=== PATIENT | male | born 1955 | race Two or more races ===

== ENCOUNTER 2020-11-10 14:34 | Emergency (ER) | payer OTHER ==
[~2020-11-10] VITALS: Ht 170.2 cm; Wt 77.1 kg
[2020-11-10] MEDS ORDERED: AMLODIPINE-OLM1 EAC2 (14:57)
[2020-11-10] MEDS ORDERED: ZESTRIL10 M1 (14:57)
[2020-11-10] MEDS ORDERED: ESCITALOPRAM OX10 MG (14:57)
[2020-11-10] MEDS ORDERED: AZOPT10 ML (14:58)
== END 2020-11-11 00:36 | disposition home or self-care (01) ==
LOC: ER 14:34
DX: I82.432 Acute embolism and thrombosis of left popliteal vein (principal); Z03.818 Encounter for observation for suspected exposure to other biological agents ruled out

== ENCOUNTER 2020-11-20 10:22 | Outpatient (CLI) | payer OTHER ==
[~2020-11-20 10:22] MED LIST: AMLODIPINE-OLM1 EAC2; AZOPT10 ML; ESCITALOPRAM OX10 MG; ZESTRIL10 M1
== END 2020-11-20 10:36 ==
LOC: TOM 10:22
DX: K80.80 Other cholelithiasis without obstruction (principal); K57.90 Diverticulosis of intestine, part unspecified, without perforation or abscess without bleeding; I82.402 Acute embolism and thrombosis of unspecified deep veins of left lower extremity

== ENCOUNTER 2021-02-07 10:45 | Outpatient (CLI) | payer OTHER | END 2021-02-07 10:47 | disposition home or self-care (01) | LOC: NUCLEAR 10:45 | PROVIDERS: ATTEND Internal Medicine Hematology & Oncology | DX: I82.403 Acute embolism and thrombosis of unspecified deep veins of lower extremity, bilateral (principal) ==

== ENCOUNTER → 2021-05-21 11:11 | Outpatient (CLI) | payer OTHER | END | disposition home or self-care (01) | LOC: NUCLEAR 11:00 | PROVIDERS: ATTEND Internal Medicine Hematology & Oncology | DX: I87.2 Venous insufficiency (chronic) (peripheral) (principal); I82.402 Acute embolism and thrombosis of unspecified deep veins of left lower extremity ==

== ENCOUNTER 2021-11-08 10:25 | Outpatient (CLI) | payer OTHER | END 2021-11-08 10:28 | disposition home or self-care (01) | LOC: NUCLEAR 10:25 | PROVIDERS: ATTEND Internal Medicine Hematology & Oncology | DX: I82.402 Acute embolism and thrombosis of unspecified deep veins of left lower extremity (principal) ==

== ENCOUNTER 2022-05-22 11:11 | Outpatient (CLI) | payer OTHER | END 2022-05-22 11:12 | disposition home or self-care (01) | LOC: NUCLEAR 11:11 | PROVIDERS: ATTEND Internal Medicine Hematology & Oncology | DX: I87.2 Venous insufficiency (chronic) (peripheral) (principal) ==

== ENCOUNTER 2023-02-09 11:34 | Outpatient (CLI) | payer OTHER | END 2023-02-09 11:39 | disposition home or self-care (01) | LOC: NUCLEAR 11:34 | PROVIDERS: ATTEND Internal Medicine Hematology & Oncology | DX: I87.2 Venous insufficiency (chronic) (peripheral) (principal); Z86.718 Personal history of other venous thrombosis and embolism ==

== ENCOUNTER → 2023-06-04 09:34 | Outpatient (CLI) | payer OTHER | END | disposition home or self-care (01) | LOC: LAB 09:34 | PROVIDERS: ATTEND Surgery | DX: D12.0 Benign neoplasm of cecum (principal); D12.6 Benign neoplasm of colon, unspecified; K92.1 Melena ==

== ENCOUNTER 2023-06-12 07:00 | Day surgery (SDC) | payer OTHER | END 2023-06-12 11:15 | disposition home or self-care (01) | LOC: AMB-ENDOS 07:00 | PROVIDERS: ATTEND Surgery | DX: D12.0 Benign neoplasm of cecum (principal); K57.30 Diverticulosis of large intestine without perforation or abscess without bleeding; K92.1 Melena; Z20.822 Contact with and (suspected) exposure to COVID-19 ==

== ENCOUNTER 2023-07-28 09:24 | Outpatient (CLI) | payer OTHER ==
[2023-07-28 10:34] LABS: PH,URINE 7.5 (5.0-8.0); URINE APPEARANCE Clear; URINE BILIRRUBIN Negative (NEGATIVE); URINE BLOOD Negative; URINE COLOR Yellow; URINE GLUCOSE Negative (NEGATIVE); URINE LEUKOCYTE Negative; URINE NITRATE Negative; URINE PROTEIN Negative (NEGATIVE); URINE UROBILINOGEN 0.2 E.U./dl
[2023-07-28 10:36] LABS: HEMATOCRIT 42.2 % (39.0-48.0); HEMOGLOBIN 14.5 g/dL (13-16.00); MEAN CELL VOLUME 90.4 fL (80.0-100.00); MEAN CORPUSCULAR HEMOGLOBIN 31.1 pg (27.00-32.0); MEAN CORPUSCULAR HGB CONC 34.4 g/dl (32.0-36.0); PLATELET COUNT 232 K/uL (150-450); RED BLOOD COUNT 4.67 M/uL (4.00-6.00); RED CELL DISTRIBUTION WIDTH 13.8 % (11.5-14.5)
[2023-07-28 11:05] LABS: INR 1.01; PARTIAL THROMBOPLASTIN TIME 23.9 SECONDS (22.0-34.0); PROTHROMBIN TIME 10.6 SECONDS (9.0-11.5)
[2023-07-28 11:17] LABS: URINE BACTERIA 0 uL (0.0-1933); URINE RBC 0.7 uL (0.0-20.8); URINE WBC 0.1 uL (0.0-23.2)
[2023-07-28 11:28] LABS: ALBUMIN 3.6 gm/dL (3.4-5.0); CALCIUM 9.2 mg/dL (8.5-10.1); CREATININE SERUM 0.78 mg/dL (0.70-1.30); GFR 99.58; PHOSPHOROUS 2.7 mg/dL (2.5-4.9); POTASSIUM 4.28 mEq/L (3.5-5.1)
== END 2023-07-28 09:28 | disposition home or self-care (01) ==
LOC: LAB 09:24 → NUCLEAR 11:00
PROVIDERS: ATTEND Surgery
DX: D12.6 Benign neoplasm of colon, unspecified (principal); K92.1 Melena; R59.0 Localized enlarged lymph nodes

== ENCOUNTER 2023-07-28 10:41 | Outpatient (CLI) | payer OTHER | END 2023-07-28 10:42 | disposition home or self-care (01) | LOC: NUCLEAR 10:41 | PROVIDERS: ATTEND Internal Medicine Hematology & Oncology | DX: I82.502 Chronic embolism and thrombosis of unspecified deep veins of left lower extremity (principal); I87.2 Venous insufficiency (chronic) (peripheral) ==

== ENCOUNTER 2023-08-05 08:45 | Inpatient (IN) | payer OTHER ==
[~2023-08-05] VITALS: Ht 17.8 cm; Wt 73.5 kg
[2023-08-05] MEDS ORDERED: DAFLONEX-XL 11300 MG (13:23)
[2023-08-05] MEDS ORDERED: CHILDREN'S ASPI81 MG PO (13:23)
[2023-08-05] MEDS ORDERED: PHENAGIL TABLE1 EACH PO (13:24)
[2023-08-11] MEDS ORDERED: FLONASE16 GM (08:41)
[2023-08-11] MEDS ORDERED: ATORVASTATIN CA20 MG (08:41)
[2023-08-11] MEDS ORDERED: AMLODIPINE BESYL5 MG (08:41)
[2023-08-11] MEDS ORDERED: REFRESH OPTIVE10 ML (08:41)
[2023-08-11 11:10] LABS: HEMATOCRIT 41.4 % (39.0-48.0); MEAN CELL VOLUME 93.1 fL (80.0-100.00); MEAN CORPUSCULAR HEMOGLOBIN 31.6 pg (27.00-32.0); MEAN CORPUSCULAR HGB CONC 33.9 g/dl (32.0-36.0); PLATELET COUNT 230 K/uL (150-450); RED BLOOD COUNT 4.45 M/uL (4.00-6.00); RED CELL DISTRIBUTION WIDTH 13.4 % (11.5-14.5)
[2023-08-11 11:32] LABS: ALBUMIN 3.4 gm/dL (3.4-5.0); CALCIUM 9.1 mg/dL (8.5-10.1); CREATININE SERUM 0.74 mg/dL (0.70-1.30); GFR 105.82; MAGNESIUM 2.2 mg/dL (1.8-2.4); PHOSPHOROUS 3.4 mg/dL (2.5-4.9); POTASSIUM 4.7 mEq/L (3.5-5.1)
[2023-08-12 07:16] LABS: HEMATOCRIT 43.5 % (39.0-48.0); HEMOGLOBIN 14.9 g/dL (13-16.00); MEAN CORPUSCULAR HEMOGLOBIN 31.1 pg (27.00-32.0); MEAN CORPUSCULAR HGB CONC 34.2 g/dl (32.0-36.0); PLATELET COUNT 203 K/uL (150-450); RED BLOOD COUNT 4.79 M/uL (4.00-6.00); RED CELL DISTRIBUTION WIDTH 13.5 % (11.5-14.5)
[2023-08-12 07:44] LABS: ALBUMIN 3.2 gm/dL (3.4-5.0); CALCIUM 9.1 mg/dL (8.5-10.1); CREATININE SERUM 0.82 mg/dL (0.70-1.30); MAGNESIUM 2.5 mg/dL (1.8-2.4); POTASSIUM 4.4 mEq/L (3.5-5.1)
[2023-08-14] MEDS ORDERED: NEURONTIN300 MG PO (14:10)
[2023-08-14] MEDS ORDERED: ACETAMINOPHEN500 M2 PO (14:10)
== END 2023-08-14 15:50 | disposition home or self-care (01) | DRG 330 ==
LOC: O/R 08-11 05:30 → SURH 08-11 05:30
PROVIDERS: ADMIT Surgery; ATTEND Surgery
PROC: 07BC4ZZ Excision of Pelvis Lymphatic, Percutaneous Endoscopic Approach (ICD-10-PCS; 2023-08-11)
PROC: 3E0F7SF Introduction of Other Gas into Respiratory Tract, Via Natural or Artificial Opening (ICD-10-PCS; 2023-08-11)
PROC: 0DTF4ZZ Resection of Right Large Intestine, Percutaneous Endoscopic Approach (ICD-10-PCS; principal; 2023-08-11 07:00)
DX: D12.0 Benign neoplasm of cecum (principal); I82.492 Acute embolism and thrombosis of other specified deep vein of left lower extremity; K92.1 Melena; R59.0 Localized enlarged lymph nodes; I11.9 Hypertensive heart disease without heart failure

== ENCOUNTER 2023-12-05 11:48 | Emergency (ER) | payer OTHER ==
[~2023-12-05] VITALS: Ht 170.2 cm; Wt 71.7 kg
[~2023-12-05 11:48] MED LIST changes: +ACETAMINOPHEN500 M2 PO; +AMLODIPINE BESYL5 MG; +ATORVASTATIN CA20 MG; +CHILDREN'S ASPI81 MG PO; +DAFLONEX-XL 11300 MG; +FLONASE16 GM; +NEURONTIN300 MG PO; +PHENAGIL TABLE1 EACH PO; +REFRESH OPTIVE10 ML
[2023-12-05] MEDS ORDERED: KETOROLAC TROMETHAMINE 30 MG VIAL IM ONE (13:30)
[2023-12-05] MEDS ORDERED: HYOSCYAMINE SULFATE 0.125 MG TAB.SUBL SL ONE (13:30)
[2023-12-05 13:58] LABS: PH,URINE 6.5 (5.0-8.0); URINE APPEARANCE Clear; URINE BILIRRUBIN Negative (NEGATIVE); URINE BLOOD Negative; URINE COLOR Yellow; URINE GLUCOSE Negative (NEGATIVE); URINE LEUKOCYTE Negative; URINE NITRATE Negative; URINE PROTEIN Negative (NEGATIVE)
[2023-12-05 13:59] LABS: HEMATOCRIT 42.3 % (39.0-48.0); HEMOGLOBIN 14.5 g/dL (13-16.00); MEAN CELL VOLUME 90.8 fL (80.0-100.00); MEAN CORPUSCULAR HEMOGLOBIN 31.2 pg (27.00-32.0); MEAN CORPUSCULAR HGB CONC 34.3 g/dl (32.0-36.0); PLATELET COUNT 290 K/uL (150-450); RED BLOOD COUNT 4.66 M/uL (4.00-6.00)
[2023-12-05 14:07] LABS: URINE BACTERIA 0 uL (0.0-1933); URINE EPITHELIAL CELLS 0.6 uL (0.0-38.8); URINE WBC 1.2 uL (0.0-23.2)
[2023-12-05 14:32] LABS: ALBUMIN 3.4 gm/dL (3.4-5.0); BILIRUBIN TOTAL 0.65 mg/dL (0.3-1.2); CALCIUM 9.4 mg/dL (8.5-10.1); CREATININE SERUM 0.76 mg/dL (0.70-1.30); GFR 102.3; GLOBULINA 4.3 G/DL (2.4-3.5); POTASSIUM 4.64 mEq/L (3.5-5.1); TOTAL PROTEIN 7.7 gm/dL (6.4-8.2)
[2023-12-05] MEDS ORDERED: PIPERACILLIN/TAZOBACTAM SODIUM 3.375 GM VIAL IV ONE (18:15)
== END 2023-12-05 19:57 | disposition home or self-care (01) ==
LOC: ER 11:48
PROVIDERS: General Practice
DX: K57.32 Diverticulitis of large intestine without perforation or abscess without bleeding (principal); R10.9 Unspecified abdominal pain; I10 Essential (primary) hypertension
CPT/HCPCS: 36415; 74176; 96365; 96372; 99284; J1885; J2543

== ENCOUNTER 2024-04-13 10:19 | Outpatient (CLI) | payer OTHER ==
[~2024-04-13 10:19] MED LIST changes: +CIPRO500 MG PO; +LEVSIN/SL0.125 MG SL; +METRONIDAZOLE500 MG PO; +PROTONIX40 MG PO
== END 2024-04-13 10:20 | disposition home or self-care (01) ==
LOC: NUCLEAR 10:19
PROVIDERS: ATTEND Internal Medicine Hematology & Oncology
DX: I82.402 Acute embolism and thrombosis of unspecified deep veins of left lower extremity (principal); I87.2 Venous insufficiency (chronic) (peripheral)

== ENCOUNTER 2024-12-13 11:17 | Outpatient (CLI) | payer OTHER | END 2024-12-13 11:18 | disposition home or self-care (01) | LOC: NUCLEAR 11:17 | PROVIDERS: ATTEND Internal Medicine Hematology & Oncology | DX: I87.2 Venous insufficiency (chronic) (peripheral) (principal) ==

== ENCOUNTER 2025-08-04 10:24 | Outpatient (CLI) | payer OTHER | END 2025-08-04 10:26 | disposition home or self-care (01) | LOC: NUCLEAR 10:24 | PROVIDERS: ATTEND Internal Medicine Hematology & Oncology | DX: I87.2 Venous insufficiency (chronic) (peripheral) (principal) ==